=== PATIENT | female | born 2000 | race Caucasian/White ===

== ENCOUNTER 2022-03-05 18:55 | Emergency (ER) | payer OTHER ==
[2022-03-05] MEDS ORDERED: Ondansetron 4 MG/2 ML SDV IVPUSH ONE (20:32)
[2022-03-05] MEDS ORDERED: Dextrose 5%-Lactated Ringers 1,000 ML IV SCH (20:45)
[2022-03-05 21:09] LABS: BLOOD UREA NITROGEN,BUN 13 mg/dL (7.0-18.0); CARBON DIOXIDE,CO2 26.9 mmol/L (21.0-32.0); CHLORIDE,CL 103 mmol/L (98-107); GLUCOSE RANDOM 57 mg/dL (74-106); LIPASE 78 U/L (73-393); POTASSIUM,K 4.1 mmol/L (3.5-5.1); SODIUM,NA 138 mmol/L (136-145)
[2022-03-05] MEDS ORDERED: Ketorolac 30 MG/ML SDV IVPUSH ONE (21:13)
[2022-03-05] MEDS ORDERED: Sulfamethoxazole/Trimethoprim 800-160 MG Tab PO STA (22:17)
== END 2022-03-05 22:31 | disposition home or self-care (01) ==
LOC: MW.ED 18:55
DX: N10 Acute pyelonephritis (principal)
CPT/HCPCS: 36415; 80053; 81001; 81025; 82947; 83690; 85025; 87086; 87088; 87186; 96374; 96375; 99284; 99284-25; A9270-GY; J1885; J2405; J7121

== ENCOUNTER 2022-10-10 21:00 | Emergency (ER) | payer MEDICAID, OTHER ==
[2022-10-10] MEDS ORDERED: Ibuprofen 600 MG Tab PO ONE (23:19)
[2022-10-11 00:12] LABS: CARBON DIOXIDE,CO2 23.9 mmol/L (21.0-32.0); POTASSIUM,K 3.6 mmol/L (3.5-5.1)
== END 2022-10-11 00:45 | disposition home or self-care (01) ==
LOC: MW.ED 21:00
DX: R07.9 Chest pain, unspecified (principal)
CPT/HCPCS: 36415; 71045; 80053; 84484; 85025; 85379; 93005; 99285; A9270

== ENCOUNTER 2023-11-18 16:49 | Emergency (ER) | payer OTHER ==
[2023-11-18 18:39] LABS: CORONAVIRUS COVID-19 NAA NEGATIVE (NEGATIVE); INFLUENZA A NAA NEGATIVE (NEGATIVE); INFLUENZA B NAA NEGATIVE (NEGATIVE); RESPIRATORY SYNCYTIAL VIR NAA NEGATIVE (NEGATIVE)
== END 2023-11-18 19:07 | disposition home or self-care (01) ==
LOC: MW.ED 16:49
DX: R06.00 Dyspnea, unspecified (principal); F41.9 Anxiety disorder, unspecified; F17.210 Nicotine dependence, cigarettes, uncomplicated; Z79.899 Other long term (current) drug therapy
CPT/HCPCS: 0241U; 71046; 99285; 99283

== ENCOUNTER 2023-11-22 07:34 | Day surgery (SDC) | payer OTHER ==
[2023-11-21 12:08] LABS: HEMATOCRIT 37.4 % (37.0-47.0); HEMOGLOBIN 12.3 g/dL (12.0-16.0); MEAN CORPUSCULAR HEMOGLOBIN 28.8 pg (28.0-32.0); MEAN CORPUSCULAR HGB CONC 32.9 g/dL (32.0-36.0); MEAN CORPUSCULAR VOLUME 87.6 fL (83.0-99.0); MEAN PLATELET VOLUME 9.4 fL (9.4-12.3); PLATELET COUNT,PLT 286 K/uL (150-400); RED BLOOD CELL COUNT 4.27 M/uL (4.10-5.30); WHITE BLOOD CELL COUNT,WBC 4.46 K/uL (3.9-11.3)
[~2023-11-22 07:34] MED LIST: Scopalamine 1mg/3day Transdermal Patch TOP ONE; Sodium Chloride 0.9% 10 ML Syringe FLUSH PRN; Sodium Chloride 0.9% 2.5 ML Syringe FLUSH PRN; Sodium Chloride 0.9% 20 ML SDV IV PRN
[2023-11-22] MEDS ORDERED: droPERidol 5 MG/2 ML SDV IVPUSH PRN (07:46)
[2023-11-22] MEDS ORDERED: Metoclopramide 10 MG/2 ML SDV IVPUSH PRN (07:46)
[2023-11-22] MEDS ORDERED: HYDROmorphone 1 MG/ML Syringe IVPUSH PRN (07:46)
[2023-11-22] MEDS ORDERED: Ondansetron 4 MG/2 ML SDV IVPUSH PRN (07:46)
[2023-11-22] MEDS ORDERED: Albuterol 0.083% 2.5 MG/3 ML Neb Soln NEB PRN (07:46)
[2023-11-22] MEDS ORDERED: Naloxone 0.4 MG/ML SDV IVPUSH PRN (07:46)
[2023-11-22] MEDS ORDERED: Morphine 2 MG/ML SYRINGE IVPUSH PRN (07:46)
[2023-11-22] MEDS ORDERED: propofoL 100 ML ONE (07:49)
[2023-11-22] MEDS ORDERED: Dexamethasone 4 MG/ML 5 ML MDV ONE (07:50)
[2023-11-22] MEDS ORDERED: Lidocaine 1% 5 ML VIAL ONE (07:50)
[2023-11-22] MEDS ORDERED: dexmedeTOMIDine HCl 200 MCG/2 ML SDV ONE (07:50)
[2023-11-22] MEDS ORDERED: Lidocaine 2% 100 MG/5 ML Syringe ONE (07:50)
[2023-11-22] MEDS ORDERED: Lidocaine 2% 5 ML SDV ONE (07:50)
[2023-11-22] MEDS ORDERED: Rocuronium Bromide 50 MG/5 ML Syringe ONE ×2 (07:50→10:12)
[2023-11-22] MEDS ORDERED: Morphine 10 MG/ML SDV ONE (07:51)
[2023-11-22] MEDS ORDERED: fentaNYL 100 MCG/2 ML SDV ONE (07:51)
[2023-11-22] MEDS ORDERED: Scopalamine 1mg/3day Transdermal Patch ONE (07:58)
[2023-11-22] MEDS ORDERED: Scopalamine 1mg/3day Transdermal Patch TOP ONE (08:00)
[2023-11-22] MEDS: Lactated Ringers 1,000 ML IV SCH ×2 (08:05→11:11)
[2023-11-22] MEDS ORDERED: Sugammadex Sodium 200 MG/2 ML VIAL IV ONE (09:10)
[2023-11-22] MEDS ORDERED: Ketorolac 30 MG/ML SDV ONE (09:10)
[2023-11-22] MEDS ORDERED: Methylene Blue 1% 100MG/10 ML SDV ONE (09:16)
[2023-11-22] MEDS ORDERED: Ropivacaine 0.5% 5 MG/ML 30 ML SDV ONE (09:38)
[2023-11-22] MEDS ORDERED: Tranexamic Acid 1,000 MG/10 ML Vial ONE (10:17)
[2023-11-22] MEDS ORDERED: Lidocaine 2% 11 ML Jelly Filled Syringe ONE (10:56)
[2023-11-22] MEDS: fentaNYL 50 MCG/ML SDV IVPUSH PRN ×3 (11:08→11:41)
== END 2023-11-22 12:32 | disposition home or self-care (01) ==
LOC: MW.SDS 07:34
PROVIDERS: ATTEND Obstetrics & Gynecology
DX: N80.103 Endometriosis of bilateral ovaries, unspecified depth (principal); F17.290 Nicotine dependence, other tobacco product, uncomplicated
CPT/HCPCS: 36415; 58350; 58662; 84703; 85027; A9270; J0131; J1100; J2270; J2704; J2795; J3010; J3490; J7120; Q9968; 00840; 64488; J1885

== ENCOUNTER 2023-11-27 17:57 | Emergency (ER) | payer OTHER ==
[2023-11-27 18:21] LABS: APPEARANCE,URINE CLEAR; BILIRUBIN,URINE NEGATIVE (NEGATIVE); COLOR,URINE YELLOW; GLUCOSE,URINE NEGATIVE (NEGATIVE); KETONES,URINE 15 mg/dL (NEGATIVE); LEUKOCYTE ESTERASE,URINE NEGATIVE (NEGATIVE); NITRITE,URINE NEGATIVE (NEGATIVE); OCCULT BLOOD,URINE TRACE-INTACT (NEGATIVE); PROTEIN,URINE NEGATIVE (NEGATIVE)
[2023-11-27 18:41] LABS: AMORPHOUS SEDIMENT,URINE LIGHT (NEGATIVE); BACTERIA,URINE FEW (NEGATIVE); EPITHELIAL CELLS,URINE FEW (NONE-FEW); MUCUS,URINE LIGHT (NONE-MOD); WBC,URINE 0-2 (0-5/HPF)
[2023-11-27 18:59] LABS: CORONAVIRUS COVID-19 NAA NEGATIVE (NEGATIVE); INFLUENZA A NAA NEGATIVE (NEGATIVE); INFLUENZA B NAA NEGATIVE (NEGATIVE)
[2023-11-27 18:59] LABS: BASOPHILS ABSOLUTE AUTO 0.02 K/uL (0.00-0.20); BASOPHILS PERCENT AUTO 0.2 % (0.0-1.0); EOSINOPHILS ABSOLUTE AUTO 0.03 K/uL (0.00-0.45); EOSINOPHILS PERCENT AUTO 0.2 % (0.0-6.0); HEMOGLOBIN 11.5 g/dL (12.0-16.0); IMMATURE GRAN PERCENT AUTO 0.8 % (0.0-0.4); LYMPHOCYTES ABSOLUTE AUTO 1.16 K/uL (1.00-4.80); MEAN CORPUSCULAR HEMOGLOBIN 28.3 pg (28.0-32.0); MEAN CORPUSCULAR HGB CONC 32.9 g/dL (32.0-36.0); MEAN CORPUSCULAR VOLUME 86.2 fL (83.0-99.0); MEAN PLATELET VOLUME 8.9 fL (9.4-12.3); MONOCYTES ABSOLUTE AUTO 0.86 K/uL (0.00-0.80); MONOCYTES PERCENT AUTO 6.7 % (0.0-8.0); NEUTROPHILS ABSOLUTE AUTO 10.76 K/uL (1.80-7.70); NEUTROPHILS PERCENT AUTO 83.1 % (41.0-71.0); PLATELET COUNT,PLT 287 K/uL (150-400); RED BLOOD CELL COUNT 4.06 M/uL (4.10-5.30); WHITE BLOOD CELL COUNT,WBC 12.93 K/uL (3.9-11.3)
[2023-11-27] MEDS: Sodium Chloride 0.9% 1,000 ML IV STA ×2 (18:59→19:35)
[2023-11-27] MEDS: Ondansetron 4 MG/2 ML SDV IVPUSH STA (18:59)
[2023-11-27] MEDS: Sodium Chloride 0.9% 2.5 ML Syringe FLUSH PRN (18:59)
[2023-11-27] MEDS: Sodium Chloride 0.9% 10 ML Syringe FLUSH PRN (18:59)
[2023-11-27 19:23] LABS: A/G RATIO 0.6 (0.9-1.6); BILIRUBIN TOTAL 0.3 mg/dL (0.2-1.0); CALCIUM 8.5 mg/dL (8.5-10.1); CARBON DIOXIDE,CO2 25.4 mmol/L (21.0-32.0); CREATININE 0.8 mg/dL (0.6-1.0); EST CRCL DRUG DOSING (CG) 109.01 mL/min
[2023-11-27] MEDS: cefTRIAXone 1 GM in Sodium Chloride 0.9% 50 ML IV STA (19:36)
[2023-11-27] MEDS: LORazepam 2 MG/ML SDV IVPUSH STA (19:37)
[2023-11-27] MEDS: Iopamidol 755 MG/ML 500 ML Multipack Bottle IVPUSH ONE (20:12)
== END 2023-11-27 22:39 | disposition home or self-care (01) ==
LOC: MW.ED 17:57
DX: A08.4 Viral intestinal infection, unspecified (principal); G89.18 Other acute postprocedural pain; Z79.899 Other long term (current) drug therapy
CPT/HCPCS: 0240U; 36415; 74177; 80053; 81001; 83605; 83690; 83735; 85025; 87040; 96361; 96374; 96375; 99284; J0696; J2060; J2405; J3490; J7030; Q9967

== ENCOUNTER 2023-12-11 18:24 | Inpatient (IN) | payer OTHER ==
[2023-12-11] MEDS ORDERED: Naloxone 0.4 MG/ML SDV IVPUSH PRN (19:07)
[2023-12-11 19:09] LABS: BASOPHILS ABSOLUTE AUTO 0.03 K/uL (0.00-0.20); BASOPHILS PERCENT AUTO 0.2 % (0.0-1.0); HEMATOCRIT 32.1 % (37.0-47.0); HEMOGLOBIN 10.8 g/dL (12.0-16.0); IMMATURE GRAN ABSOLUTE AUTO 0.16 K/uL (0.00-0.05); IMMATURE GRAN PERCENT AUTO 0.9 % (0.0-0.4); LYMPHOCYTES ABSOLUTE AUTO 0.61 K/uL (1.00-4.80); LYMPHOCYTES PERCENT AUTO 3.4 % (24.0-44.0); MEAN CORPUSCULAR HEMOGLOBIN 27.8 pg (28.0-32.0); MEAN CORPUSCULAR HGB CONC 33.6 g/dL (32.0-36.0); MEAN CORPUSCULAR VOLUME 82.5 fL (83.0-99.0); MEAN PLATELET VOLUME 9.3 fL (9.4-12.3); MONOCYTES ABSOLUTE AUTO 0.62 K/uL (0.00-0.80); MONOCYTES PERCENT AUTO 3.4 % (0.0-8.0); NEUTROPHILS ABSOLUTE AUTO 16.77 K/uL (1.80-7.70); NEUTROPHILS PERCENT AUTO 92.1 % (41.0-71.0); PLATELET COUNT,PLT 646 K/uL (150-400); RED BLOOD CELL COUNT 3.89 M/uL (4.10-5.30); WHITE BLOOD CELL COUNT,WBC 18.19 K/uL (3.9-11.3)
[2023-12-11] MEDS: Sodium Chloride 0.9% 1,000 ML IV STA ×2 (19:17→21:50)
[2023-12-11] MEDS: Sodium Chloride 0.9% 2.5 ML Syringe FLUSH PRN (19:18)
[2023-12-11] MEDS: Morphine 4 MG/ML Syringe IVPUSH ONE ×2 (19:18→21:14)
[2023-12-11] MEDS: Sodium Chloride 0.9% 10 ML Syringe FLUSH PRN (19:18)
[2023-12-11 19:34] LABS: A/G RATIO 0.5 (0.9-1.6); ALBUMIN 2.5 g/dL (3.4-5.0); BILIRUBIN TOTAL 0.7 mg/dL (0.2-1.0); CALCIUM 8.3 mg/dL (8.5-10.1); CARBON DIOXIDE,CO2 22.6 mmol/L (21.0-32.0); CREATININE 1.1 mg/dL (0.6-1.0); EST CRCL DRUG DOSING (CG) 74.68 mL/min; POTASSIUM,K 3.1 mmol/L (3.5-5.1); PROTEIN TOTAL,TP 7.9 g/dL (6.4-8.2)
[2023-12-11] MEDS: Piperacillin/Tazobactam 4.5 GM in Sodium Chloride 0.9% 100 ML IV ONE (19:34)
[2023-12-11 19:37] LABS: LACTIC ACID 1.9 mmol/L (0.4-2.0)
[2023-12-11 20:07] LABS: CORONAVIRUS COVID-19 NAA NEGATIVE (NEGATIVE); INFLUENZA A NAA NEGATIVE (NEGATIVE); INFLUENZA B NAA NEGATIVE (NEGATIVE); RESPIRATORY SYNCYTIAL VIR NAA NEGATIVE (NEGATIVE)
[2023-12-11] MEDS: Iopamidol 755 MG/ML 500 ML Multipack Bottle IVPUSH ONE (20:07)
[2023-12-11 21:53] LABS: BILIRUBIN,URINE NEGATIVE (NEGATIVE); COLOR,URINE YELLOW; GLUCOSE,URINE NEGATIVE (NEGATIVE); KETONES,URINE NEGATIVE (NEGATIVE); LEUKOCYTE ESTERASE,URINE NEGATIVE (NEGATIVE); NITRITE,URINE NEGATIVE (NEGATIVE); OCCULT BLOOD,URINE MODERATE (NEGATIVE); PH,URINE 5.5 (5.0-8.0); PROTEIN,URINE NEGATIVE (NEGATIVE); UROBILINOGEN,URINE 0.2 EU/dL (<2.0)
[2023-12-11 21:57] LABS: APPEARANCE,URINE HAZY
[2023-12-11 22:02] LABS: AMORPHOUS SEDIMENT,URINE LIGHT (NEGATIVE); BACTERIA,URINE FEW (NEGATIVE); EPITHELIAL CELLS,URINE FEW (NONE-FEW); MUCUS,URINE LIGHT (NONE-MOD); WBC,URINE 0-2 (0-5/HPF)
[2023-12-11] MEDS ORDERED: oxyCODONE 5 MG Tab PO PRN (22:54)
[2023-12-11] MEDS: Ketorolac 30 MG/ML SDV IVPUSH ONE (23:33)
[2023-12-11] MEDS: metroNIDAZOLE/Normal Saline 500 MG in Premix Bag 1 BAG IV SCH (23:35)
[2023-12-12 02:02] LABS: C. TRACHOMATIS BY PCR NOT DETECTED; N. GONORRHOEAE BY PCR NOT DETECTED
[2023-12-12] MEDS: NS + KCl 20mEq/L 1,000 ML IV SCH (02:06)
[2023-12-12] MEDS: Ketorolac 30 MG/ML SDV IVPUSH SCH (04:29)
[2023-12-12 07:56] LABS: HEMATOCRIT 24.9 % (37.0-47.0); HEMOGLOBIN 8.3 g/dL (12.0-16.0); MEAN CORPUSCULAR HEMOGLOBIN 28.1 pg (28.0-32.0); MEAN CORPUSCULAR HGB CONC 33.3 g/dL (32.0-36.0); MEAN CORPUSCULAR VOLUME 84.4 fL (83.0-99.0); MEAN PLATELET VOLUME 9.7 fL (9.4-12.3); PLATELET COUNT,PLT 379 K/uL (150-400); RED BLOOD CELL COUNT 2.95 M/uL (4.10-5.30); WHITE BLOOD CELL COUNT,WBC 13.56 K/uL (3.9-11.3)
[2023-12-12 08:15] LABS: CALCIUM 7.3 mg/dL (8.5-10.1); CARBON DIOXIDE,CO2 23.1 mmol/L (21.0-32.0); CREATININE 0.7 mg/dL (0.6-1.0); EST CRCL DRUG DOSING (CG) 122.59 mL/min; POTASSIUM,K 3.6 mmol/L (3.5-5.1)
[2023-12-12] MEDS: Acetaminophen 325 MG Tab PO PRN (08:26)
[2023-12-12 08:48] LABS: BAND ABSOLUTE MAN 0.27; BAND PERCENT MAN 2 %; LYMPHOCYTES ABSOLUTE MAN 0.81 K/uL (1.00-4.80); LYMPHOCYTES PERCENT MAN 6 % (24-44); MONOCYTES ABSOLUTE MAN 0.27 K/uL (0.00-0.80); MONOCYTES PERCENT MAN 2 % (0-8); SEG NEUTROPHILS PERCENT MAN 90 % (41-71)
[2023-12-12] MEDS: Piperacillin/Tazobactam 4.5 GM in Sodium Chloride 0.9% 100 ML IV SCH (13:22)
[2023-12-12] MEDS: Ondansetron 4 MG/2 ML SDV IVPUSH PRN (21:03)
[2023-12-13 06:09] LABS: HEMATOCRIT 22.5 % (37.0-47.0); HEMOGLOBIN 7.3 g/dL (12.0-16.0); MEAN CORPUSCULAR HEMOGLOBIN 27.5 pg (28.0-32.0); MEAN CORPUSCULAR HGB CONC 32.4 g/dL (32.0-36.0); MEAN CORPUSCULAR VOLUME 84.9 fL (83.0-99.0); MEAN PLATELET VOLUME 9.4 fL (9.4-12.3); PLATELET COUNT,PLT 376 K/uL (150-400); RED BLOOD CELL COUNT 2.65 M/uL (4.10-5.30); WHITE BLOOD CELL COUNT,WBC 15.04 K/uL (3.9-11.3)
[2023-12-13 06:41] LABS: A/G RATIO 0.4 (0.9-1.6); ALBUMIN 1.5 g/dL (3.4-5.0); BILIRUBIN TOTAL 0.3 mg/dL (0.2-1.0); CALCIUM 7.3 mg/dL (8.5-10.1); CARBON DIOXIDE,CO2 20.4 mmol/L (21.0-32.0); CREATININE 0.9 mg/dL (0.6-1.0); EOSINOPHILS ABSOLUTE MAN 0.15 K/uL (0.00-0.45); EOSINOPHILS PERCENT MAN 1 % (0-6); EST CRCL DRUG DOSING (CG) 95.35 mL/min; LYMPHOCYTES PERCENT MAN 6 % (24-44); MONOCYTES ABSOLUTE MAN 0.45 K/uL (0.00-0.80); MONOCYTES PERCENT MAN 3 % (0-8); POTASSIUM,K 3.5 mmol/L (3.5-5.1); PROTEIN TOTAL,TP 5.2 g/dL (6.4-8.2); SEG NEUTROPHILS ABSOLUTE MAN 13.54 K/uL (1.80-7.70); SEG NEUTROPHILS PERCENT MAN 90 % (41-71)
[2023-12-13] MEDS: Promethazine 25 MG/ML SDV IM PRN (10:10)
[2023-12-13 13:42] LABS: PERCENT FE SATURATION 6.42 % (20-55)
[2023-12-13] MEDS: Iopamidol 755 MG/ML 500 ML Multipack Bottle IVPUSH STA (14:56)
[2023-12-13] MEDS: Pantoprazole 40 MG in Sodium Chloride 0.9% 10 ML IVPUSH SCH (15:32)
[2023-12-13] MEDS: Piperacillin/Tazobactam 4.5 GM in Sodium Chloride 0.9% 100 ML IV SCH (15:34)
[2023-12-13] MEDS ORDERED: Lactated Ringers 1,000 ML IV SCH (15:45)
[2023-12-13] MEDS: Sodium Ferric Gluconate Cmplex 125 MG in Sodium Chloride 0.9% 100 ML IV ONE (15:54)
== END 2023-12-13 17:20 | DRG 947 ==
LOC: MW.ED 18:24 → INTOOBSV 21:49 → MW.MS 21:49 → OBSVTOIN 12-13 13:21 → MW.MS 12-13 13:59
PROVIDERS: ADMIT Obstetrics & Gynecology; ATTEND Obstetrics & Gynecology
DX: G89.18 Other acute postprocedural pain (principal); K65.9 Peritonitis, unspecified; N73.9 Female pelvic inflammatory disease, unspecified; D64.9 Anemia, unspecified; F17.210 Nicotine dependence, cigarettes, uncomplicated; K66.8 Other specified disorders of peritoneum; E87.6 Hypokalemia; Z98.890 Other specified postprocedural states; Z90.6 Acquired absence of other parts of urinary tract; Z90.721 Acquired absence of ovaries, unilateral
CPT/HCPCS: 0241U; 36415; 36430; 74174; 74174-26; 74177; 74177-26; 80048; 80053; 80202; 81001; 81025; 82607; 83550; 83605; 83690; 84703; 85007; 85025; 85027; 86850; 86900; 86901; 86920; 87040; 87045; 87046; 87324; 87338; 87449; 87491; 87591; 87899; 96365; 96366; 96367; 96368; 96372; 96375; 96376; 99284-25; 99285; A9270-GY; C9113; G0378; J1836; J1885; J2270; J2405; J2543; J2550; J2916; J3370; J3480; J3490; J7030; J7050; P9016; Q9967

== ENCOUNTER 2024-07-10 09:17 | Emergency (ER) | payer OTHER ==
[2024-07-10] MEDS: Alum Hydrox/Mag Hydrox/Simeth 15 ML, Metoclopramide 5 MG, Lidocaine 2% 5 ML PO ONE (10:09)
[2024-07-10] MEDS: Ondansetron 4 MG/2 ML SDV IVPUSH ONE (10:09)
[2024-07-10] MEDS: Sodium Chloride 0.9% 1,000 ML IV ONE (10:09)
[2024-07-10 10:15] LABS: BASOPHILS ABSOLUTE AUTO 0.02 K/uL (0.00-0.20); BASOPHILS PERCENT AUTO 0.4 % (0.0-1.0); EOSINOPHILS ABSOLUTE AUTO 0.07 K/uL (0.00-0.45); EOSINOPHILS PERCENT AUTO 1.5 % (0.0-6.0); HEMATOCRIT 39.6 % (37.0-47.0); HEMOGLOBIN 13.2 g/dL (12.0-16.0); IMMATURE GRAN ABSOLUTE AUTO 0.04 K/uL (0.00-0.05); IMMATURE GRAN PERCENT AUTO 0.8 % (0.0-0.4); LYMPHOCYTES ABSOLUTE AUTO 1.11 K/uL (1.00-4.80); LYMPHOCYTES PERCENT AUTO 23.3 % (24.0-44.0); MEAN CORPUSCULAR HEMOGLOBIN 29.7 pg (28.0-32.0); MEAN CORPUSCULAR HGB CONC 33.3 g/dL (32.0-36.0); MEAN CORPUSCULAR VOLUME 89.2 fL (83.0-99.0); MEAN PLATELET VOLUME 8.8 fL (9.4-12.3); MONOCYTES ABSOLUTE AUTO 0.25 K/uL (0.00-0.80); MONOCYTES PERCENT AUTO 5.3 % (0.0-8.0); NEUTROPHILS ABSOLUTE AUTO 3.27 K/uL (1.80-7.70); NEUTROPHILS PERCENT AUTO 68.7 % (41.0-71.0); PLATELET COUNT,PLT 285 K/uL (150-400); RED BLOOD CELL COUNT 4.44 M/uL (4.10-5.30); WHITE BLOOD CELL COUNT,WBC 4.76 K/uL (3.9-11.3)
[2024-07-10 10:55] LABS: ALBUMIN 3.8 g/dL (3.4-5.0); BILIRUBIN TOTAL 0.2 mg/dL (0.2-1.0); CALCIUM 8.3 mg/dL (8.5-10.1); CARBON DIOXIDE,CO2 26.3 mmol/L (21.0-32.0); CREATININE 0.9 mg/dL (0.6-1.0); EST CRCL DRUG DOSING (CG) 95.35 mL/min; POTASSIUM,K 4.2 mmol/L (3.5-5.1); PROTEIN TOTAL,TP 7.7 g/dL (6.4-8.2)
[2024-07-10] MEDS: Acetaminophen/HYDROcodone 325-5 MG Tab PO ONE (11:24)
== END 2024-07-10 11:29 | disposition home or self-care (01) ==
LOC: MW.ED 09:17
DX: R10.10 Upper abdominal pain, unspecified (principal); R11.0 Nausea; Z75.8 Other problems related to medical facilities and other health care
CPT/HCPCS: 36415; 80053; 83690; 85025; 96361; 96374; 99284; A9270; J2405; J7030